=== PATIENT | male | born 1975 | race Caucasian/White ===

== ENCOUNTER 2025-02-25 07:48 | Day surgery (SDC) | payer OTHER, SELFPAY ==
[2025-02-25] VITALS (10 sets, daily range): BP systolic 118–161; BP diastolic 82–97; PULSE 65–137; RESP 16–20; TEMP 36.2–37.3; O2SAT 90–97; BMI 35.1
[2025-02-25] MEDS: Lactated Ringers 1,000 ML 15 ML IV (08:23)
--- NOTE | 2025-02-25 08:51 | PCM.PRE.AN2 ---
ASA Classification* ASA Classification ASA Classification: 2 Assessment & Plan Anesthesia* Anesthesia Assessment Anesthesia Assessment: Discussed sedation and/or anesthesia options, risks, benefits, and alternatives with patient/parents/legal guardian/POA. Questions invited. The patient/parents/legal guardian/POA seems to understand and agrees to proceed with anesthesia plan. Reviewed the physical assessment, medical history, allergy history and patient home medications list prior to surgery/procedure/anesthetic and documented any changes. Performed airway and anesthesia risk assessments. Anesthesia Type Anesthesia Type: General History Source History Obtained from:: Patient and Chart Anesthesia Focused Assessment* Temperature: 99.1 F Pulse Rate: 73 Blood Pressure: 161/97 Respiratory Rate: 20 Pulse Ox: 96 Oxygen Delivery Method: Room Air Airway Assessment Mouth opens: >3 cm Mallampati Score: III Teeth Condition: Missing (Patient is missing several teeth. Rest of the teeth are tight.) Neck Range of motion (ROM): Limited ROM (Somewhat Decreased) Labs Anesthesia Preop lab: CBC CHEMISTRY COAG Pre-Assessment Diagnosis/Proposed Procedure Planned Operative Procedure(s): CYSTO DILATION URETHERAL STRICTURE Anesthesia History Anesthesia History - presentation manager: Anesthesia History - presentation manager Hx Hospitalization No 02/24/25 10:56 Any Problems With Anesthesia No 02/24/25 10:56 Cholinesterase deficiency No 02/24/25 10:56 You/Your Family Experience No 02/24/25 10:56 fever (hyperthermia) with Relationship Recent Exposure to Contagious No 02/25/25 08:15 Disease Does patient have nerve No 02/24/25 10:56 stimulator Patient instructed to have device shut off --Does patient have Pacemaker No 02/25/25 08:15 or ICD? When Was Last Pacemaker Check QUESTION #4 FULL TEXT: You/Your Family Experience fever (hyperthermia) with Anesthesia Last Oral Intake Last Oral intake: Last Oral Intake NPO since 21:00 02/25/25 08:15 Meds taken in AM with sips of Yes 02/25/25 08:15 water? Meds patient instructed to take am of surgery Any additional information?: Yes Meds taken in AM with sips of water?: Yes PONV PONV - presentation manager: PONV - presentation manager Female No 02/24/25 10:56 HX of Motion Sickness No 02/24/25 10:56 HX of N/V After Surgery No 02/24/25 10:56 Non-Smoker Yes 02/24/25 10:56 Duration of Surgery greater No 02/24/25 10:56 than 60 minutes Number of Risk Factors 1 02/24/25 10:56 PONV Score Low Risk 02/24/25 10:56 Height & Weight Height & Weight: Anesthesia: Height & Weight Height 5 ft 10 in 02/25/25 08:15 Weight: 111 kg 02/25/25 08:15 Body Mass Index (BMI) 35.1 02/25/25 08:15 Respiratory Assessment Respiratory Assessment - presentation manager: Respiratory Tract Infection Hx - presentation manager Hx Respiratory Tract Infection No 02/24/25 10:56 STOP Sleep Apnea STOP Sleep Apnea - presentation manager: STOP Sleep Apnea - presentation manager Hx Hypertension Yes: CONTROLLED WITH MEDS 02/24/25 10:56 Hx Sleep Apnea No 02/24/25 10:56 CPAP BIPAP Do you snore loudly (louder Yes 02/24/25 10:56 than talking or can be heard Do you often feel tired/ No 02/24/25 10:56 fatigued/ sleepy during daytime? Has anyone observed you stop No 02/24/25 10:56 breathing during sleep? STOP Results Positive 02/24/25 10:56 QUESTION #5 FULL TEXT : Do you snore loudly (louder than talking or can be heard through closed doors)? Tobacco Use History Tobacco Use History - presentation manager: Tobacco Use History - presentation manager Tobacco Use Smoking Status Former smoker 02/24/25 10:56 Hx Tobacco Use No 02/24/25 10:56 Years Smoking Packs Smoked per Day Smoking Cessation Date was No - quit smoking greater 02/24/25 10:56 within the last 15 years than 15 years ago Hx Smoking Cessation Date Hx Smoking Cessation Counseling Hematologic Medial History Hematologic Hx - presentation manager: Hematologic Medical Hx - vice chairman Hx of Blood Transfusion No 02/24/25 10:56 Hx of Transfusion in last 3 No 02/24/25 10:56 Months Date of Last Transfusion (if within last 3 months) Ever experience any problems No 02/24/25 10:56 with transfusion(s)? Specify any problems Hx of Preganancy in last 3 N/A 02/24/25 10:56 Months Nurse Filling Out Transfusion [id number] 02/24/25 10:56 & Questions: Date: 02/24/25 02/24/25 10:56 Time: 10:59 02/24/25 10:56 Patient unable to answer at this time (ie. confused, unrespo /Reproduction History /Reproductive History - presentation manager: /Reproductive Hx- presentation manager Hx Now Gestational Age (in weeks): EDC: Hx Hx Para Hx Section SAB Active Medications Active Medications: Current Medications Generic Name Dose Route Start Last Admin Trade Name Freq PRN Reason Stop Dose Admin Cefazolin Sodium 2 gm/ Sodium 110 mls @ 200 mls/hr 02/25/25 10:00 Chloride IV 02/25/25 10:32 INTRAOP ONE Lactated Ringer's 1,000 mls @ 15 mls/hr 02/25/25 08:00 02/25/25 08:23 IV 15 mls/hr .Q48H JUAN DIEGO Administration PFSH Medical History Kidney stones Hypertension Home Medications ?Medication ?Instructions ?Recorded ?Last Taken ?Type alprazolam 1 mg tablet 0.5 mg PO BID PRN PRN anxiety 02/24/25 02/25/25 History metoprolol tartrate 50 mg tablet 50 mg PO DAILY 02/24/25 02/25/25 History tamsulosin 0.4 mg capsule 0.4 mg PO QHS 02/24/25 02/24/25 History Allergy/AdvReac Type Severity Reaction Status Date / Time No Known Allergies Allergy Verified 02/25/25 08:14 Surgical History Hx of appendectomy Social History Smoking Status: Former smoker Review of Systems (Anesthesia) ROS Narrative System reviewed and no additional complaints, except as documented.
[2025-02-25] MEDS: Lactated Ringers 500 ML IV (09:55)
[2025-02-25] MEDS: Lidocaine 1% (5 ml sdv) 5 ML Vial IV (09:56)
[2025-02-25] MEDS: Cefazolin 1 GM/5 ML Vial 2 GM IV (09:58)
[2025-02-25] MEDS: Ketorolac 30 MG/ML Syringe IV (10:04)
[2025-02-25] MEDS: fentaNYL 100 MCG/2 ML Ampul IV (10:05)
--- NOTE | 2025-02-25 10:20 | PCM.DC ---
Discharge Instructions DC O2, CPAP, BIPAP needs Home O2 Discharge instructions: No Dressing / Incision Discharge Activity: Return to Normal Activity and May Not Drive (while taking narcotic pain medications.) Dressing / Incision Call your doctor if you observe: Fever of 101 or Higher Catheter: Coker to leg bag and Coker to large bag Drain: [place] Follow Up Care Please Follow Up With: Kelton Ospina MD When: Call [phone] for an appointment Test Results: Test results from this visit will be discussed in further detail at your follow-up appointment, if applicable. Discharge Plan Admission Primary Reason for Your Visit: Dilation of stricture Attending Provider: Kelton Ospina Primary Care Provider: Mulu Vigil NP Instructions Print Language: Lao Discharge Orders/Prescriptions Prescriptions: New ibuprofen 600 mg tablet 600 mg PO Q6H PRN (Reason: fever or pain) Qty: 14 0RF cephalexin 500 mg capsule 500 mg PO TID Qty: 10 0RF Continued metoprolol tartrate 50 mg tablet 50 mg PO DAILY alprazolam 1 mg tablet 0.5 mg PO BID PRN PRN (Reason: anxiety) tamsulosin 0.4 mg capsule 0.4 mg PO QHS Referrals / Follow Up: Kelton Ospina MD [Med Staff - Active Staff] - uMlu Vigli NP, PORTABLE GRINDING MACHINE OPERATOR-C [Primary Care Provider] - Disposition Disposition (needs filled in before D/C Order can be placed): Home, Self Care
--- NOTE | 2025-02-25 10:21 | OP.PCM_ITS ---
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 Post-Operative Diagnosis: The same Surgery/Procedure Performed: Cystoscopy dilation of meatal stricture complicated Coker placement opto mechanical technician: No Type of Anesthesia: General RN Documented Start/Stop Times: Operation Date: 02/25/25 10:00 Case Time Into Pre-Op 02/25/25 07:54 Out of Pre-Op 02/25/25 09:46 Anesthesia Start 02/25/25 09:50 Into Room 02/25/25 09:50 Procedure Start 02/25/25 10:07 Procedure End 02/25/25 10:18 Procedure Start Time: 10:07 Procedure Stop Time: 10:18 Select all DRAINS/GRAFTS/IMPLANTS that apply: Drains Drain details: 20 [place] tip catheter Estimated Blood Loss: 5 cc Specimen collected: No Description of surgery: 49-year-old male who presented to the emergency room at [facility] was not able to urinate they were not able to place the catheter initially they tried several times but he was found to have a very dense stricture in the distal urethra eventually they he went back to the emergency room they were able to put a very small catheter to drain his bladder he was not able to urinate came to my office and I think the problem is he has a very dense stricture in the distal urethra he can feel on exam plan to do a cystoscopy dilation of the stricture and a diagnostic cystoscopy at the same time today. He will go home after the dilation of the stricture to allow the stricture to heal open Patient was taken back to the operating room after induction of anesthesia he was placed in dorsolithotomy position the existing catheter was removed the penis was testicles were prepped and draped in usual fashion went into the bladder try to go in but the stricture was too tight so then I put a wire through 0.038 Glidewire and over this I used the Bard dilation kit and start dilating from 12 Thai to 18 Thai I try to do a scope again but is still the distal urethra was too tight from is a very tight stricture in the distal urethra so then using sounds I was able to dilate the stricture further started at 14 Thai and dilated all the way up to 30 Thai and eventually at the 32 Thai with sounds then with this is able to get through the stricture in the distal urethra he also had a very mild stricture in the bulbar urethra was able to get through this and then get into the bladder prostate was very normal size no obstruction of the prostate short length prostate bladder was normal no tumors or stones within the bladder I then removed the cystoscope put a wire into the bladder and then over the wire placed a 20 [place] tip catheter he will go home with acute 20 [place] tip catheter allow the stricture to heal up over the catheter explained to the patient and the family it is possible the stricture could come back. Patient was extubated taken back to the PACU in good condition he will follow-up in the office in 2 weeks for removal of the Coker catheter we will continue with Flomax to be given antibiotics and pain medicine for afterwards. Surgical Findings: Very dense stricture in the distal urethra Complications Complications: No Admit VTE Documentation VTE Present on Admission: No VTE Mechan Device Prophylaxis: SCD's VTE Pharm Prophylaxis ordered?: No
--- NOTE | 2025-02-25 10:31 | PCM.POST.ANE ---
Anesthesia: Postop Eval I Current Vital Signs Temperature: 97.5 F Pulse Rate: 65 Blood Pressure: 132/84 Respiratory Rate: 16 Pulse Ox: 93 Oxygen Delivery Method: Room Air Assessment Airway patent: Yes Spontaneous unlabored respirations: Yes Mental status: Asleep nausea: No Vomiting: No Anesthesia Complication: No Fluid Hydration Crystalloid volume administer (ml): 600 Total IV fluid infused: 600 Progress Note Anesthesia document: Postop Eval 1 completed: Yes
== END 2025-02-25 12:28 | disposition home or self-care (01) ==
LOC: SDC 07:54 → AC 07:55
PROVIDERS: PCP Nurse Practitioner Family; Referring Provider Urology; Visit Provider Urology
PROC: 0T7D8ZZ Dilation of Urethra, Via Natural or Artificial Opening Endoscopic (ICD-10-PCS; CPT 52281; principal; 2025-02-25 09:50)
DX: R33.9 Retention of urine, unspecified (principal); N35.912 Unspecified bulbous urethral stricture, male; I10 Essential (primary) hypertension; Z87.442 Personal history of urinary calculi; Z87.891 Personal history of nicotine dependence
CPT/HCPCS: 52281; 00910; C1769; J2405